=== PATIENT | male | born 1955 | race Caucasian/White ===

== ENCOUNTER → 2023-03-22 | Outpatient (CLI) | payer MEDICARE ==
--- NOTE | 2023-03-22 10:36 | MR ---
EXAMINATION TYPE: MR Prostate wo/w con DATE OF EXAM: 03/22/2023 10:22 AM COMPARISON: None. CLINICAL INDICATION:Male, 68 years old with history of R97.20 Elevated PSA R68.89 Abnormal [facility] E; [facility], TECHNIQUE: Multi-planar, multi-sequence imaging of the pelvis is performed prior to and following the uncomplicated administration of bolus intravenous gadolinium. CONTRAST: 6.5 Gadavist Interpretive Criteria: PI-RADS v2.1 SERUM PSA: 3.55 on 08/17/2022. SURGICAL PATHOLOGY: No data available. FINDINGS: Prostatic dimensions: 5.3 x 5.3 x 4.30 cm. Ellipsoid Volume:63.24 (PSA density=0.06 ng/mL/mL) CENTRAL GLAND (Central and Transition Zones/CZ+TZ): Multiple bilateral, heterogenous appearing hypertrophic stromal nodules, without suspicious lesion. M edian lobe hypertrophy with protrusion into the base of the bladder. (PI-RADS 2) PERIPHERAL ZONE (PZ): Bilateral linear, indistinct wedgelike areas of low ADC, and low T2 signal, No evidence of masslike a bnormality, or localized perfusional hypervascularity, to further suggest a focus of clinically signi ficant prostate cancer. (PI-RADS 2) SEMINAL VESICLES (SV): Symmetric and unremarkable. PERIPROSTATIC TISSUES: Unremarkable. LYMPH NODES: No enlarged pelvic lymph node. REMAINING PELVIS: Bladder wall is within normal limits given distention. No abnormal free or organized intrapelvic fluid collection. No pathologic bowel dilation or mural thickening. Small right hydrocele. Right epididymal cyst present. Scattered colonic diverticula. OSSEOUS STRUCTURES: No suspicious osseous abnormality. IMPRESSION: 1. No specific features for high-risk prostate cancer. Maximum PI-RADS score: 2. 2. Moderate BPH, estimated gland volume 63.24 mL.
== END | disposition home or self-care (01) ==
LOC: RADMRIMAIN 09:20
PROVIDERS: ATTEND Urology
DX: N40.0 Benign prostatic hyperplasia without lower urinary tract symptoms (principal); R68.89 Other general symptoms and signs; R97.20 Elevated prostate specific antigen [PSA]
CPT/HCPCS: 72197; A9585